=== PATIENT | female | born 1975 | race Caucasian/White ===

== ENCOUNTER → 2017-01-12 | Outpatient (CLI) | payer OTHER ==
[~2017-01-12] MED LIST: ASPIRIN81 M1 PO; COLACE PO; DICYCLOMINE HCL20 MG PO; FAMOTIDINE PO; FAMVIR500 MG PO; FLEXERIL PO; IBUPROFEN PO; KETOPROFEN PO; LIDODERM; LORTAB 10/500 T1 TAB PO; LYRICA PO; MEDROL PO; MOBIC PO; NEURONTIN PO; NORCO 10/325 TA1 TAB PO; PHENERGAN PO; PREDNISONE PO; PRILOSEC PO; PROTONIX PO; ROBITUSSIN ALL118 ML PO; TYLENOL #2 PO; VALTREX PO; VICODIN 5/500 T1 TAB PO; ZITHROMAX PO
--- NOTE | ~2017-01-12 | MY29 ---
[facility] A Service of [facility] RADIOLOGY TEXT RESULTS PATIENT: CARLITOS WOOD LOCATION: [facility] : 71 UNIT #: [id number] AGE: [address]: IGNACIO NAM SEX: F ORDER DR: [id number] [facility]. [place], [place] [address] [id number] O MR#: [id number] Acc #: [id number] NAME: CARLITOS WOOD : 1975 SEX: F STUDY DATE/TIME: 01/12/2017 14:12 UNIT: [facility] ROOM: STUDY DESCRIPTION: MY PARISH SCREENING W/ CAD BILAT Attending Physician: Raina Gonzalez Referring Physician: Flor Harrell M.D. Ordering Physician: Raina Gonzalez Primary Care Physician: Flor Harrell M.D. MEDICAL IMAGING REPORT This report is preliminary unless electronic signature is present EXAM Digital screening mammogram 01/12/2017 HISTORY 41-year-old woman. No risk elevation. Annual screen. COMPARISON 10/16/2013 FINDINGS Digital imaging of each breast was completed utilizing a two-view examination of each breast in craniocaudal and mediolateral-oblique projections. Review and interpretation of digital mammograms include a second review in conjunction with FDA-approved CAD device. There is a normal parenchymal presentation bilaterally consistent with the patient's age. There are no breast masses imaged and no parenchymal asymmetry is visualized. There are no suspicious microcalcifications and I see no focal architectural disturbance. IMPRESSION Negative screening digital mammogram. One-year followup recommended. Patients over the age of 40 are entered into a reminder system with target due date for the next mammogram. A result letter will also be sent to the patient. BIRADS: 1 Negative Dictated by... Dale Hoyos M.D. THIS IS AN ELECTRONICALLY VERIFIED REPORT [facility] A Service [facility] RADIOLOGY TEXT RESULTS PATIENT: CARLITOS WOOD LOCATION: [facility] : 71 UNIT #: [id number] AGE: [address]: IGNACIO NAM SEX: F ORDER DR: Dale Hoyos M.D. at 01/13/2017 8:06 AM KYLEE/jess TD: 01/12/2017 15:55 JOB #: [id number] MEDICAL IMAGING REPORT Page 1 of 1 COPY
== END | disposition home or self-care (01) ==
LOC: CWCC 13:50
DX: Z12.31 Encounter for screening mammogram for malignant neoplasm of breast (principal)
CPT/HCPCS: G0202

== ENCOUNTER → 2017-01-19 | Outpatient (CLI) | payer OTHER ==
--- NOTE | ~2017-01-19 | CR127 ---
[facility] A Service of [facility] RADIOLOGY TEXT RESULTS PATIENT: CARLITOS WOOD LOCATION: [facility] : 71 UNIT #: [id number] AGE: [address]: IGNACIO NAM SEX: F ORDER DR: [id number] [id number] [place], [place] [address] [id number] O MR#: [id number] Acc #: [id number] NAME: CARLITOS WOOD : 1975 SEX: F STUDY DATE/TIME: 01/19/2017 13:27 UNIT: [facility] ROOM: STUDY DESCRIPTION: CR Foot Complete Min 3 View Rt Attending Physician: Raina Gonzalez Ordering Physician: Raina Gonzalez Primary Care Physician: Flor Harrell M.D. MEDICAL IMAGING REPORT This report is preliminary unless electronic signature is present EXAM Three views of the right foot. DATE 01/19/2017 HISTORY Right foot pain, greatest on the top and lateral side of the right foot for 1 month. Rolled ankle. COMPARISON None. FINDINGS No fracture. No dislocation. Small plantar calcaneal spur. No significant osteoarthritic changes. No osteolytic or osteoblastic abnormalities. No retained radiopaque foreign body. IMPRESSION Normal right foot. Dictated by... Antonietta Fan M.D. THIS IS AN ELECTRONICALLY VERIFIED REPORT Antonietta Fan M.D. at 01/20/2017 10:[address] [facility] TD: 01/19/2017 23:28 JOB #: [id number] MEDICAL IMAGING REPORT [facility] A Service of [facility] RADIOLOGY TEXT RESULTS PATIENT: CARLITOS WOOD LOCATION: [facility] : 71 UNIT #: [id number] AGE: [address]: IGNACIO NAM SEX: F ORDER DR: Page 1 of 1 COPY
== END | disposition home or self-care (01) ==
LOC: CRAD 13:16
DX: M79.671 Pain in right foot (principal)
CPT/HCPCS: 73630

== ENCOUNTER → 2017-01-25 | Outpatient (CLI) | payer OTHER ==
--- NOTE | ~2017-01-25 | MR61 ---
[facility] A Service of [facility] & [facility] RADIOLOGY TEXT RESULTS PATIENT: CARLITOS WOOD [facility] UNIT #: [id number] AGE: [address]: IGNACIO NAM SEX: F ORDER DR: [id number] [facility] [address] [facility]. [place], [place] [address] [id number] O MR#: [id number] Acc #: [id number] NAME: CARLITOS WOOD : 1975 SEX: F STUDY DATE/TIME: 01/25/2017 13:58 UNIT: [facility] ROOM: STUDY DESCRIPTION: MR Foot Wo Contrast Rt Attending Physician: Raina Gonzalez Referring Physician: Raina Gonzalez Ordering Physician: Raina Gonzalez Primary Care Physician: Flor Harrell M.D. MRI CENTER REPORT This report is preliminary unless electronic signature is present. EXAM MRI of right ankle and foot without contrast, 01/25/2017. COMPARISON Right foot radiographs, 01/19/2017. HISTORY Order states right foot swelling and pain. History sheet states twisted right ankle approximately 12/05/2016. Had x-rays which were negative. One week later developed swelling over anterior portion of foot and ankle marked with a marker. 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 No related surgery. Comparison--office notes [facility] 01/15/2017. FINDINGS The tibiotalar joint and ankle ligaments are within normal limits. There is mild retromalleolar and proximal inframalleolar peroneus longus tendinosis without a tear. Peroneus brevis tendon is intact. The remainder of the ankle tendons are normal. Sinus tarsi and tarsal tunnel are normal. There is no muscle atrophy. There is marrow edema in the proximal third metatarsal base with a somewhat cystic-appearance. There is an adjacent slightly lobulated cystic-appearing lesion in the soft tissues just deep to the gel cap dorsal to the third and fourth proximal metatarsals with surrounding marrow edema. The cystic-appearing lesion measures approximately 10 x 7 x 5 mm (AP by transverse by craniocaudal) and most likely reflects a synovial cyst or ganglion. Soft tissue tumor is statistically unlikely. Findings could also be secondary to dorsal proximal intermetatarsal STS. [facility] A Service of [facility] & [facility] RADIOLOGY TEXT RESULTS PATIENT: CARLITOS WOOD [id number] 71 UNIT #: [id number] AGE: [address]: IGNACIO NAM SEX: F ORDER DR: ligament pathology with subsequent synovial or ganglion cyst formation and enthesopathic edema of the metatarsal. There is no evidence of a concerning marrow lesion or fracture. Midfoot alignment and Lisfranc ligament are intact. There is fluid distension of the FHL tendon sheath in the plantar hind foot is a nonspecific finding. This does not necessarily imply tenosynovitis. Given the potential communication to the tibiotalar and posterior subtalar joints. Plantar fascia is unremarkable. IMPRESSION 1. Findings most suggestive of a dorsal midfoot synovial or ganglion cyst measuring 10 x 7 x 5 mm in the area of reported pain with surrounding soft tissue edema. There is also a cystic change marrow edema of the adjacent third metatarsal base. Findings could reflect sequela of soft tissue injury or dorsal intermetatarsal ligament pathology between the third and fourth metatarsals. No definite arthritic process is noted at the third or fourth tarsal-metatarsal joint. 2. Nonspecific fluid in the FHL tendon sheath. Dictated by... Gina Tipton M.D. THIS IS AN ELECTRONICALLY VERIFIED REPORT Gina Tipton M.D. at 01/27/2017 11:19 AM GIORGIO/schuyler TD: 01/26/2017 17:49 JOB #: [id number] MRI CENTER REPORT Page 1 of 1 COPY
== END | disposition home or self-care (01) ==
LOC: CMRI 13:36
DX: M79.671 Pain in right foot (principal); M79.89 Other specified soft tissue disorders; R60.0 Localized edema
CPT/HCPCS: 73718

== ENCOUNTER 2017-03-29 19:31 | Emergency (ER) | payer OTHER ==
--- NOTE | ~2017-03-29 | CT4 ---
[facility] A Service of [facility] RADIOLOGY TEXT RESULTS PATIENT: CARLITOS WOOD LOCATION: [facility] : 71 UNIT #: [id number] AGE: [address]: Bonilla Goodman MD SEX: F ORDER DR: [id number] [facility]. [place], [place] [address] [id number] E MR#: [id number] Acc #: [id number] NAME: CARLITOS WOOD : 1975 SEX: F STUDY DATE/TIME: 03/29/2017 23:02 UNIT: [facility] ROOM: STUDY DESCRIPTION: CT Abd and Pelv Wo Cont Attending Physician: Bonilla Goodman M.D. Ordering Physician: Bonilla Goodman M.D. Primary Care Physician: Flor Harrell M.D. MEDICAL IMAGING REPORT This report is preliminary unless electronic signature is present EXAM CT abdomen and pelvis without contrast. HISTORY Right flank pain today. Kidney stones. FINDINGS CT abdomen and pelvis was performed without contrast. This CT exam was performed with one or more of the following radiation dose reduction techniques: automatic exposure control, adjustment of mA and/or kV according to patient size, and iterative reconstruction. CT ABDOMEN The liver, spleen, pancreas, kidneys, and adrenal glands are unremarkable. Cholecystectomy. No renal calculi. No hydronephrosis. No bowel dilatation. CT PELVIS Hysterectomy. No free fluid. No bowel dilatation. Very mild sigmoid diverticulosis. No diverticulitis. No bowel dilatation. IMPRESSION 1. No acute findings in the abdomen or pelvis. 2. No urinary obstruction or bowel obstruction. 3. Cholecystectomy and hysterectomy. Dictated by... Carter Diaz M.D. THIS IS AN ELECTRONICALLY VERIFIED REPORT Carter Diaz M.D. at 03/31/2017 4:13 AM [facility] A Service of [facility] & [facility] RADIOLOGY TEXT RESULTS PATIENT: CARLITOS WOOD LOCATION: [facility] : 71 UNIT #: [id number] AGE: [address]: Bonilla Goodman MD SEX: F ORDER DR: KARELY/terry TD: 03/30/2017 08:29 JOB #: [id number] MEDICAL IMAGING REPORT Page 1 of 1 COPY
[2017-03-29 21:23] LABS: BASOPHIL# 0.1 X10e3 (0-0.3); BASOPHIL% 0.5 % (0-2.5); EOSINOPHIL# 0.2 X10e3 (0-0.7); EOSINOPHIL% 1.6 % (0.0-7.0); HEMATOCRIT 41.2 % (35.0-45.0); HEMOGLOBIN 13.9 gm/dL (12.0-16.0); LYMPHOCYTE# 3.5 X10e3 (1.0-3.5); LYMPHOCYTE% 26.4 % (17.0-45.0); MEAN CELL VOLUME 89.1 FL (83-96); MEAN CORPUSCULAR HGB CONC 33.7 g/dL (30-36); MONOCYTE# 0.7 X10e3 (0-1.0); MONOCYTE% 5.2 % (3.0-12.0); NEUTROPHIL# 8.7 X10e3 (1.5-7.1); NEUTROPHIL% 66.3 % (40-75); PLATELET COUNT 247 X10e3 (140-420); RED BLOOD COUNT 4.62 X10e (3.90-5.30); RED CELL DISTRIBUTION WIDTH 12.7 % (11.0-15.5); WHITE BLOOD COUNT 13.1 X10e3 (4.0-10.5)
[2017-03-29 21:27] LABS: DIFF IND NO
[2017-03-29 22:02] LABS: ALBUMIN SERUM 4.2 g/dL (3.5-5.0); BILIRUBIN, DIRECT 0.1 mg/dL (0.0-0.2); BILIRUBIN,INDIRECT 0.1 mg/dL (0.0-0.9); BILIRUBIN,TOTAL 0.2 mg/dL (0.2-2.0); BUN/CREATININE RATIO 16.25; CALCIUM SERUM 9.3 mg/dL (8.4-10.2); CREATININE SERUM 0.8 mg/dL (0.6-1.4); GLOM FILT RATE Estimated 89.7 mL/min (>60); POTASSIUM 3.6 mmol/L (3.5-5.1); PROTEIN TOTAL SERUM 7.6 g/dL (6.0-8.3)
[2017-03-29 22:31] LABS: URINE SOURCE CLEAN CATCH
[2017-03-29 22:44] LABS: URINE APPEARANCE CLOUDY; URINE BILIRUBIN NEG (NEG); URINE BLOOD 3+ (NEG); URINE COLOR YELLOW; URINE GLUCOSE NEG (NEG); URINE KETONE TRACE (NEG); URINE LEUKOCYTE ESTERASE TRACE (NEG); URINE NITRATE NEG (NEG); URINE PROTEIN TRACE (NEG); URINE SPECIFIC GRAVITY 1.033 (1.003-1.035)
[2017-03-29 22:47] LABS: CULTURE INDICATED? YES; URBCS1 AUWI INNUM /[HPF] (0-2); URINE BACTERIA AUWI 1+ (NEGATIVE); URINE SQUAMOUS EPITHELIAL CELL MOD /[HPF]
== END 2017-03-29 23:50 | disposition home or self-care (01) ==
LOC: CED 19:31
PROVIDERS: Emergency Medicine
DX: R31.9 Hematuria, unspecified (principal); Z87.442 Personal history of urinary calculi; Z90.49 Acquired absence of other specified parts of digestive tract; Z90.710 Acquired absence of both cervix and uterus; Z88.0 Allergy status to penicillin; Z88.5 Allergy status to narcotic agent; Z88.8 Allergy status to other drugs, medicaments and biological substances; F17.200 Nicotine dependence, unspecified, uncomplicated
CPT/HCPCS: 36415; 74176; 80048; 80076; 81003; 83690; 84703; 85025; 87086; 96361; 96374; 96375; 99284; J0595; J2405